=== PATIENT | female | born 1990 | race Two or more races ===

== ENCOUNTER 2021-07-27 19:35 | Observation (INO) | payer MEDICAID ==
[~2021-07-27] VITALS: Ht 177.8 cm; Wt 104.3 kg
== END 2021-07-27 20:27 | disposition home or self-care (01) ==
LOC: LDRP 19:35
PROVIDERS: ADMIT Obstetrics & Gynecology Obstetrics; ATTEND Obstetrics & Gynecology Obstetrics
DX: O62.9 Abnormality of forces of labor, unspecified (principal); Z3A.39 39 weeks gestation of pregnancy
CPT/HCPCS: 59025; 81002; G0378; G0379

== ENCOUNTER → 2021-07-28 | Outpatient (CLI) | payer MEDICAID ==
[2021-07-28 10:30] LABS: Basophils # (auto) 0 10 ^3/uL (0-0.2); Basophils % (auto) 0.3 % (0.0-2.0); Eosinophils # (auto) 0.2 10 ^3/uL (0-0.8); Hemoglobin 11.7 g/dL (12.2-16.2); Monocytes # (auto) 0.7 10 ^3/uL (0-1.3)
[2021-07-28 10:33] LABS: Eosinophils % (auto) 1.5 % (0.0-7.0); Hematocrit 35.2 % (36.0-46.0); Lymphocytes # (auto) 2.7 10 ^3/uL (0.4-5.4); Lymphocytes % (auto) 23.1 % (10.0-50.0); Mean Corpuscular Hemoglobin 26.8 pg (28.0-32.0); Mean Corpuscular Hgb Conc. 33.3 g/dL (32.0-36.0); Mean Corpuscular Volume 80.6 fL (80.0-100.0); Neutrophils # (auto) 8.1 10 ^3/uL (1.6-8.6); Neutrophils % (auto) 69.1 % (37.0-80.0); Nucleated Red Blood Cells % 0.1 %; Red Blood Cells 4.37 10^6/uL (4.0-5.20); Red Cell Distribution Width 15.2 % (11.8-14.3); White Blood Cell 11.8 10^3/uL (4.4-10.8)
[2021-07-29 06:06] LABS: RPR Non Reactive (Non Reactive)
== END | disposition home or self-care (01) ==
LOC: LAB 09:50
PROVIDERS: ATTEND Obstetrics & Gynecology
DX: Z34.80 Encounter for supervision of other normal pregnancy, unspecified trimester (principal); Z11.3 Encounter for screening for infections with a predominantly sexual mode of transmission; Z3A.00 Weeks of gestation of pregnancy not specified
CPT/HCPCS: 36415; 84112; 85025; 86592

== ENCOUNTER 2021-08-02 11:45 | Inpatient (IN) | payer MEDICAID ==
[2021-08-01 23:00] VITALS: BP 125/68
[~2021-08-02] VITALS: Ht 170.2 cm; Wt 99.8 kg
[2021-08-02] MEDS ORDERED: PREN-96 PO (12:07)
[2021-08-02] MEDS ORDERED: ASPI-543 PO (12:07)
[2021-08-02] MEDS ORDERED: LACTATED RINGER'S 1,000 ML IV ONE (12:30)
[2021-08-02] MEDS ORDERED: PHISODERM TOP SOLN 240ML BTL TOP PRN (12:30)
[2021-08-02] MEDS ORDERED: WITCH HAZEL-GLYCERIN PAD TOP PRN (12:30)
[2021-08-02] MEDS ORDERED: DERMOPLAST 60ML BOTTLE TOP PRN (12:30)
[2021-08-02] MEDS ORDERED: LACT. RINGERS/OXYTOCIN 20UNITS 500 ML IV ONE ×2 (12:30→13:00)
[2021-08-02] MEDS ORDERED: PROMETHAZINE HCL 25 MG/ML 1ML IV PRN (12:30)
[2021-08-02] MEDS ORDERED: BUTORPHANOL TARTRATE 2 MG/1 ML VIAL IV PRN ×2 (12:30)
[2021-08-02] MEDS ORDERED: LIDOCAINE 2%HCL (LOCAL ANESTH.) INJ 20ML MDV IJ PRN (12:30)
[2021-08-02 13:07] LABS: Urine Bacteria MANY /hpf (None Seen); Urine Blood Negative /uL (Negative); Urine Mucus FEW (None Seen); Urine Specific Gravity 1.018 (1.001-1.035); Urine WBC 5 /hpf (0 - 5)
[2021-08-02 13:15] LABS: Alcohol, Urine < 3.0 mg/dL (0-10); Amphetamine Screen, Urine NEGATIVE (NEGATIVE); Barbiturate Scree,Urine NEGATIVE (NEGATIVE); Benzodiazephine Screen, Urine NEGATIVE (NEGATIVE); Cannabinoid Screen, Urine NEGATIVE (NEGATIVE); Cocaine Screen, Urine NEGATIVE (NEGATIVE); Opiate Scree,Urine NEGATIVE (NEGATIVE); Phencyclidine Screen, Urine NEGATIVE (NEGATIVE)
[2021-08-02] MEDS: LACTATED RINGER'S 1,000 ML IV SCH ×2 (13:40→15:45)
[2021-08-02 13:55] LABS: Basophils # (auto) 0 10 ^3/uL (0-0.2); Basophils % (auto) 0.3 % (0.0-2.0); Eosinophils # (auto) 0.1 10 ^3/uL (0-0.8); Eosinophils % (auto) 0.8 % (0.0-7.0); Hemoglobin 11.2 g/dL (12.2-16.2); Lymphocytes # (auto) 2.2 10 ^3/uL (0.4-5.4); Neutrophils # (auto) 9.2 10 ^3/uL (1.6-8.6); White Blood Cell 12.1 10^3/uL (4.4-10.8)
[2021-08-02 13:57] LABS: Lymphocytes % (auto) 18.4 % (10.0-50.0); Mean Corpuscular Hemoglobin 26.7 pg (28.0-32.0); Monocytes # (auto) 0.5 10 ^3/uL (0-1.3); Monocytes % (auto) 4.5 % (0.0-12.0); Nucleated Red Blood Cells % 0.1 %; Red Blood Cells 4.19 10^6/uL (4.0-5.20)
[2021-08-02] MEDS ORDERED: miSOPROStol 100 mcg TAB SL PRN (14:00)
[2021-08-02] MEDS ORDERED: miSOPROStol 100 mcg TAB PR PRN (14:00)
[2021-08-02 14:10] LABS: Partial Thromboplastin Time 23.5 sec (23.6-33.0)
[2021-08-02 14:14] LABS: Albumin 2.6 g/dL (3.4-5.0); BUN/Creatinine Ratio 11.4; Calcium 8.2 mg/dL (8.5-10.1); Uric Acid 3.5 mg/dL (2.6-6.0)
[2021-08-02] MEDS ORDERED: ROPIVACAINE HCL 200 ML EPI SCH ×2 (14:15→15:30)
[2021-08-02] MEDS ORDERED: LIDOCAINE HCL 2 %PF INJ 10ML AMP IJ ONE (14:15)
[2021-08-02] MEDS ORDERED: fentaNYL CITRATE 100 MCG/2 ML VL EPI ONE (14:15)
[2021-08-02] MEDS ORDERED: NALOXONE HCL 0.4 MG/ML VIAL IV ONE (14:15)
[2021-08-02] MEDS ORDERED: ePHEDrine SULFATE 50 MG/ML AMP IV ONE (14:15)
[2021-08-02 14:17] LABS: Bilirubin, Total 0.5 mg/dL (0.2-1.0)
[2021-08-02 14:31] LABS: Protein, Urine 33.1 mg/dL (0.0-11.9)
[2021-08-02] MEDS ORDERED: TERBUTALINE SULFATE 1 MG/ML 1ML VIAL SC PRN (16:00)
[2021-08-02] MEDS ORDERED: LACT. RINGERS/OXYTOCIN 20UNITS 1,000 ML IV SCH ×2 (16:00→22:00)
[2021-08-02] MEDS ORDERED: miSOPROStol 100 mcg TAB ONE (18:30)
[2021-08-02] MEDS ORDERED: ACETAMINOPHEN 325 MG TAB PO PRN (21:30)
[2021-08-02] MEDS ORDERED: DOCUSATE SOD 100 MG CAP PO SCH (22:00)
[2021-08-02 23:00] VITALS: BP 125/68
[2021-08-02] MEDS: IBUPROFEN 600 MG TAB PO PRN (23:14)
[2021-08-03 03:00] VITALS: BP 116/69
[2021-08-03 07:30] VITALS: BP 129/71
[2021-08-03] MEDS: IBUPROFEN 600 MG TAB PO PRN ×2 (08:17→17:01)
[2021-08-03 11:30] VITALS: BP 129/77
[2021-08-03 15:30] VITALS: BP 139/79
[2021-08-03 18:45] VITALS: BP 123/79
[2021-08-03 21:36] VITALS: BP 123/79
[2021-08-04 06:06] LABS: RPR Non Reactive (Non Reactive)
== END 2021-08-03 21:36 | disposition home or self-care (01) | DRG 560 ==
LOC: LDRP 11:45 → OBSVTOIN 12:18 → LDRP 17:35
PROVIDERS: ADMIT Obstetrics & Gynecology; ATTEND Obstetrics & Gynecology
PROC: 10E0XZZ Delivery of Products of Conception, External Approach (ICD-10-PCS; principal; 2021-08-02)
PROC: 3E0DXGC Introduction of Other Therapeutic Substance into Mouth and Pharynx, External Approach (ICD-10-PCS; 2021-08-02)
PROC: 3E0R3BZ Introduction of Anesthetic Agent into Spinal Canal, Percutaneous Approach (ICD-10-PCS; 2021-08-02)
PROC: 00HU33Z Insertion of Infusion Device into Spinal Canal, Percutaneous Approach (ICD-10-PCS; 2021-08-02)
PROC: 0HQ9XZZ Repair Perineum Skin, External Approach (ICD-10-PCS; 2021-08-02)
DX: O70.0 First degree perineal laceration during delivery (principal); Z37.0 Single live birth; Z20.822 Contact with and (suspected) exposure to COVID-19; Z3A.39 39 weeks gestation of pregnancy
CPT/HCPCS: 36415; 59025; 59409; 62282; 80053; 80307; 81001; 81002; 82570; 84156; 84550; 85025; 85610; 85730; 86592; 86850; 86900; 86901; 87426; 94760; 96360; 96361; 96365; 96366; 96374; 96375; G0378; J2590

== ENCOUNTER 2024-04-23 18:45 | Emergency (ER) | payer MEDICAID, OTHER ==
[~2024-04-23] VITALS: Ht 160 cm; Wt 73.3 kg
[~2024-04-23 18:45] MED LIST: PREN-96 PO
[2024-04-23 19:37] VITALS: BP 127/78; PULSE 125; RESP 16; O2SAT 100
[2024-04-23] MEDS ORDERED: IBUP1TAB5 PO (22:32)
[2024-04-23] MEDS ORDERED: CYCL-837 PO (22:32)
== END 2024-04-24 00:58 | disposition home or self-care (01) ==
LOC: ER 18:45
DX: S80.02XA Contusion of left knee, initial encounter (principal); S50.02XA Contusion of left elbow, initial encounter; V43.62XA Car passenger injured in collision with other type car in traffic accident, initial encounter; Y93.89 Activity, other specified; Y92.89 Other specified places as the place of occurrence of the external cause; Y99.8 Other external cause status
CPT/HCPCS: 73080; 73562